=== PATIENT | female | born 1985 | race Caucasian/White ===

== ENCOUNTER 2023-08-07 03:56 | Day surgery (SDC) | payer OTHER ==
[2023-08-01 11:57] VITALS: BMI 33.6
[2023-08-07 10:31] LABS: BASO % 0.8 % (0-2.0); HEMATOCRIT 35.2 % (32.4-45.2); HEMOGLOBIN 11.6 GM/dL (10.7-15.3); LYMPH % 23.9 % (8-40); MCH 29.2 pg (25.7-33.7); MCHC 32.9 g/dl (32.0-36.0); MEAN CELL VOLUME 88.9 fl (80-96); MEAN PLT VOLUME 7.4 fl (7.5-11.1); MONO % 7.7 % (3.8-10.2); NEUT % 66.6 % (42.8-82.8); PLATELET COUNT 384 10^3/uL (134-434); RBC 3.97 M/mm3 (3.60-5.2); RDW 13.6 % (11.6-15.6); WHITE BLOOD COUNT 7.5 K/mm3 (4.0-10.0)
[2023-08-07] MEDS ORDERED: ceFAZolin SODIUM 1 GM VIAL ONE (12:13)
[2023-08-07] MEDS ORDERED: LACTATED RINGERS SOLUTION 1,000 ML IV SCH (14:15)
[2023-08-07] MEDS: INDOMETHACIN 50 MG CAPSULE PO ONE ×2 (15:19)
[2023-08-07 19:00] VITALS: BP 115/75; PULSE 70; RESP 20; TEMP 97.3
== END 2023-08-07 18:50 | disposition home or self-care (01) ==
LOC: JASU-SURG 03:56
PROVIDERS: ATTEND Obstetrics & Gynecology Maternal & Fetal Medicine
PROC: 0UVC7ZZ Restriction of Cervix, Via Natural or Artificial Opening (ICD-10-PCS; principal; 2023-08-07 12:00)
DX: O34.31 Maternal care for cervical incompetence, first trimester (principal); Z3A.11 11 weeks gestation of pregnancy
CPT/HCPCS: 36415; 85025; 86850; 86900; 86901; 94760

== ENCOUNTER 2024-01-31 23:25 | Inpatient (IN) | payer OTHER ==
[2024-02-01 01:54] VITALS: BMI 37.7
[2024-02-01 02:28] LABS: BASO % 0.5 % (0-2.0); EOS % 0.2 % (0-4.5); HEMOGLOBIN 10.1 GM/dL (10.7-15.3); MCH 25.1 pg (25.7-33.7); MCHC 32.4 g/dl (32.0-36.0); MEAN CELL VOLUME 77.5 fl (80-96); MEAN PLT VOLUME 6.8 fl (7.5-11.1); MONO % 8.1 % (3.8-10.2); NEUT % 79.2 % (42.8-82.8); PLATELET COUNT 449 10^3/uL (134-434); RDW 16.2 % (11.6-15.6); WHITE BLOOD COUNT 13.9 K/mm3 (4.0-10.0)
[2024-02-01 02:33] LABS: INR 0.89 (0.83-1.09); PROTHROMBIN TIME (PATIENT) 10.3 SEC (9.7-13.0)
[2024-02-01 02:36] LABS: ACTIVATED PTT 32.6 SECONDS (25.2-36.5)
[2024-02-01] MEDS: DEXTROSE 5%-LACTATED RINGERS 1,000 ML IV SCH (02:45)
[2024-02-01 03:21] LABS: POTASSIUM 4.4 mmol/L (3.5-5.1)
[2024-02-01 03:23] LABS: BLOOD UREA NITROGEN 9.4 mg/dL (7-18); CALCIUM 8.8 mg/dL (8.5-10.1)
[2024-02-01 03:26] LABS: CREATININE 0.7 mg/dL (0.55-1.3)
[2024-02-01 03:27] VITALS: RESP 18
[2024-02-01] MEDS ORDERED: LIDOCAINE HCL 1% PRESERVATIVE FREE - 30ML VIAL ONE (03:34)
[2024-02-01] MEDS ORDERED: OXYTOCIN 20 UNITS in 0.9% NS 20 UNIT/1,000 ML INFUS.BAG IV ONE (03:35)
[2024-02-01] MEDS: SODIUM CHLORIDE 500 ML IV STA (03:40)
[2024-02-01] MEDS: OXYTOCIN 20 UNITS in 0.9% NS 20 UNIT/1,000 ML INFUS.BAG IV SCH (03:56)
[2024-02-01] MEDS ORDERED: WITCH HAZEL 50% (TUCKS) 40 PAD/JAR PAD TP PRN (04:37)
[2024-02-01] MEDS ORDERED: ACETAMINOPHEN 325 MG TABLET (FP) PO PRN (04:37)
[2024-02-01] MEDS ORDERED: BENZOCAINE 28 GM HEMORRHOIDAL OINTMENT TP PRN (04:37)
[2024-02-01] MEDS ORDERED: DOCUSATE SODIUM 100 MG CAPSULE (FP) PO PRN (04:39)
[2024-02-01] MEDS: morphine SULFATE 4 MG/ML VIAL IVPB ONE (04:46)
[2024-02-01 04:49] LABS: CORD BASE EXCESS -8.7 mmol/L (0-2); CORD HCO3 18.1 mmHg (20-29); CORD PCO2 42.2 mmHg (30-78); CORD pH 7.251 (7.14-7.44)
[2024-02-01 04:51] LABS: CORD HCO3 20.1 mmHg (20-29); CORD PCO2 41.9 mmHg (30-78); CORD pH 7.299 (7.14-7.44)
[2024-02-01] MEDS: IBUPROFEN 600 MG TABLET (FP) PO PRN (09:15)
[2024-02-01] MEDS: FERROUS SO4 325 MG TABLET (FP) PO SCH (09:15)
[2024-02-01] MEDS: BENZOCAINE 20% 57 GM BOTTLE TP PRN (09:16)
[2024-02-02 06:52] LABS: BASO % 0.5 % (0-2.0); EOS % 0.9 % (0-4.5); HEMATOCRIT 24.8 % (32.4-45.2); HEMOGLOBIN 8.3 GM/dL (10.7-15.3); MCHC 33.3 g/dl (32.0-36.0); MEAN PLT VOLUME 6.7 fl (7.5-11.1); MONO % 9.4 % (3.8-10.2); NEUT % 68.2 % (42.8-82.8); PLATELET COUNT 365 10^3/uL (134-434); RBC 3.18 M/mm3 (3.60-5.2); RDW 16.1 % (11.6-15.6); WHITE BLOOD COUNT 10.7 K/mm3 (4.0-10.0)
[2024-02-02] MEDS: DOCUSATE SODIUM 100 MG CAPSULE (FP) PO SCH (09:46)
[2024-02-02 23:11] VITALS: PULSE 74
[2024-02-03 08:27] VITALS: BP 125/74; TEMP 98.6
== END 2024-02-03 11:33 | disposition home or self-care (01) | DRG 560 ==
LOC: JDEL 23:25 → JLDR 02-01 01:10 → J3W 02-01 06:15
PROVIDERS: ADMIT Obstetrics & Gynecology Maternal & Fetal Medicine; ATTEND Obstetrics & Gynecology Maternal & Fetal Medicine
PROC: 10E0XZZ Delivery of Products of Conception, External Approach (ICD-10-PCS; principal; 2024-02-01)
PROC: 0KQM0ZZ Repair Perineum Muscle, Open Approach (ICD-10-PCS; 2024-02-01)
PROC: 0W8NXZZ Division of Female Perineum, External Approach (ICD-10-PCS; 2024-02-01)
DX: O34.33 Maternal care for cervical incompetence, third trimester (principal); O99.214 Obesity complicating childbirth; O99.12 Other diseases of the blood and blood-forming organs and certain disorders involving the immune mechanism complicating childbirth; O70.1 Second degree perineal laceration during delivery; O99.02 Anemia complicating childbirth; Z3A.37 37 weeks gestation of pregnancy; Z37.0 Single live birth
CPT/HCPCS: 36415; 36600; 59409; 80048; 82803; 85025; 85610; 85730; 86780; 86850; 86900; 86901; 88307-TC